=== PATIENT | female | born 1950 | race Caucasian/White ===

== ENCOUNTER → 2016-07-27 | Outpatient (CLI) | payer BC ==
[~2016-07-27] VITALS: Ht 160 cm; Wt 108.1 kg
[2016-07-27 13:04] VITALS: BP 146/81; PULSE 80; Ht 160 cm; Wt 108.1 kg
== END | disposition home or self-care (01) ==
LOC: C.NEUR 12:14
PROVIDERS: ATTEND Internal Medicine Pulmonary Disease
DX: G47.33 Obstructive sleep apnea (adult) (pediatric) (principal)

== ENCOUNTER → 2017-07-26 | Outpatient (CLI) | payer BC ==
[~2017-07-26] VITALS: Ht 160 cm; Wt 112.8 kg
[2017-07-26 12:59] VITALS: BP 142/82; PULSE 80; BMI 44.1
[2017-07-26 13:37] VITALS: BP 138/87; PULSE 97; BMI 29.8
[2017-07-26 13:52] VITALS: BP 142/82; PULSE 80; Ht 160 cm; Wt 112.8 kg
== END | disposition home or self-care (01) ==
LOC: C.NEUR 12:07
PROVIDERS: ATTEND Internal Medicine Pulmonary Disease
DX: G47.33 Obstructive sleep apnea (adult) (pediatric) (principal); E66.9 Obesity, unspecified; Z68.41 Body mass index [BMI] 40.0-44.9, adult